=== PATIENT | female | born 1955 | race Caucasian/White ===

== ENCOUNTER → 2019-09-29 | Outpatient (CLI) | payer MEDICARE, OTHER | LOC: M.LAB 15:06 | PROVIDERS: ATTEND Internal Medicine Gastroenterology | DX: Z01.812 Encounter for preprocedural laboratory examination (principal); Z11.59 Encounter for screening for other viral diseases; Z86.010 Personal history of colon polyps ==

== ENCOUNTER 2020-03-22 15:08 | Emergency (ER) | payer OTHER ==
[~2020-03-22] VITALS: Ht 160 cm; Wt 81.7 kg
[2020-03-22 15:20] VITALS: BP 152/72
[2020-03-22] MEDS ORDERED: HYDROCODON-ACE1 EAC7 PO (16:38)
[2020-03-22] MEDS ORDERED: MEDROLDOSEPACK PO (16:43)
== END 2020-03-22 17:27 | disposition home or self-care (01) ==
LOC: M.ERS 15:08
DX: M70.62 Trochanteric bursitis, left hip (principal); Y93.89 Activity, other specified

== ENCOUNTER 2020-03-27 12:28 | Inpatient (IN) | payer OTHER ==
[~2020-03-27] VITALS: Ht 160 cm; Wt 87.5 kg
--- NOTE | ~2020-03-27 | IN ---
[address] [address] INTERIM NOTE Name: MONISHA LIRA Brian Room: [address] IN [facility]#: [id number] Admission: 03/27/20 Attend Phys: Wali Calderon MD Discharge: 04/02/20 Date of : 51 Report #: [id number] THIS REPORT FOR: cc: Leeann Long Christine L DO ~ Elia, Manana MD DATE OF SERVICE: 04/02/2020 SUBJECTIVE: The patient is doing better. She is being discharged to rehabilitation. She does not have fevers or chills. OBJECTIVE: VITAL SIGNS: Blood pressure 146/66, heart rate is 77, temperature 97.5. NECK: Supple. HEART: Normal S1, S2. LUNGS: Clear. ABDOMEN: Soft. MENTAL STATUS: Alert and oriented x 3. LABORATORY DATA: Pathology is still pending. ASSESSMENT AND PLAN: History of breast cancer with pathological hip fracture. Pathology is still pending. I advised to continue follow up with Dr. Gant. She states she has an appointment with Dr. Gant in 1 week. By: [id number] Bello MD /nt
--- NOTE | ~2020-03-27 | OP ---
[address] [address] OPERATIVE REPORT Name: PANKAJALYMONISHA A Room: [address] IN .R.#: [id number] Admission: 03/27/20 Attend Phys: Wali Calderon MD Discharge: Date of : 51 Report #: [id number] THIS REPORT FOR: cc: Leeann Long Christine L DO ~ Cornett, Alan D. DO DICTATED BY: Dontrell Olvera DO DATE OF SERVICE: 03/29/2020 PREOPERATIVE DIAGNOSIS: Pathologic left femoral neck fracture. POSTOPERATIVE DIAGNOSIS: Pathologic left femoral neck fracture. PROCEDURE PERFORMED: Left hip cemented hemiarthroplasty. SURGEON: Rene Hargrove DO ASSISTANTS: Dontrell Olvera DO ANESTHESIA: General. ANTIBIOTICS: 2 g Ancef IV preoperatively. ESTIMATED BLOOD LOSS: 200 mL. SPECIMENS: Femoral head for gross pathology. COMPLICATIONS: None. CONDITION: The patient is stable to PACU. INDICATIONS FOR PROCEDURE: The patient is a 64-year-old female who presented to the [facility] Emergency Department for evaluation of left hip pain. CT was obtained, which did demonstrate a minimally displaced femoral neck fracture. She did have a remote history of breast cancer and an MRI was obtained to further evaluate the fracture. MRI was noted to have a pathologic lesion in the left femoral neck at the fracture site consistent with pathologic fracture. Treatment options were discussed in detail with the patient. We did recommend cemented hemiarthroplasty as treatment. The risks, benefits, alternatives, complications were discussed. The patient wished to proceed. DESCRIPTION OF PROCEDURE: The patient was seen and examined in the preoperative holding area. The correct operative extremity was marked. Written consent was obtained. The patient was transferred to the operating [place] [address] OPERATIVE REPORT Name: MONISHA LIRA Room: [address] IN [facility]#: [id number] Admission: 03/27/20 Attend Phys: Wali Calderon MD Discharge: Date of : 51 Report #: [id number] on the operating table. She was given the benefit of general anesthesia. She was then placed in the right lateral decubitus position with the left side superiorly. Left lower extremity was then prepped and draped in usual sterile fashion. Timeout was performed to verify the correct patient, procedure and operative extremity and all were in agreement. Procedure then began with standard anterolateral incision over the left hip. Sharp dissection was carried down to the level of the IT band. This was incised longitudinally in line with the incision. Charnley retractor was placed. The gluteal tendons were then identified at their attachment on the greater trochanter and were tenotomized. This exposed the anterior joint capsule, which was incised utilizing H capsulotomy. There was noted to be a complete femoral neck fracture. The hip was dislocated. The femoral head was removed. There was noted to be softening and fibrous like tissue changes to the bone itself consistent with pathologic fracture. The femoral head was removed and sent for pathology. This was measured 46. The 46 trial head was inserted and was noted to have excellent suction and fit and fill of the acetabulum. Attention was then turned to the femur. The fracture line did extend just above the level of the lesser trochanter, so a femoral neck cut was not needed. The femur was then reamed and broached up to a size 9 broach. A final size 7 Echo stem was then cemented into position. The canal was prepped and a cement stopper was placed while cement was mixed on the back table. The canal was then pressurized with cement, the final stem was inserted and held into position allowing the cement to harden. Next, the various head and neck sizes were trialed. Ultimately, the +6 neck length with 46 mm bipolar head was then placed. This was reduced. Hip was noted to have excellent stability throughout range of motion. The incision was thoroughly irrigated with normal saline. TXA topical was placed into the incision. The hip was injected with 120 mL of orthopedic cocktail. The capsule was closed with #1 Vicryl in an interrupted epdjtu-yw-jdzyd fashion followed by a #5 FiberWire for repair of the gluteal tendons. A #1 Vicryl and #1 running Stratafix were used for the IT band, followed by 2-0 Vicryl subcutaneously, and 3-0 Stratafix and skin glue. Sterile dressing was applied. The patient was then awakened from anesthesia and transferred to the PACU in stable condition. The patient tolerated the procedure well and no complications. Dr. Hargrove was present and scrubbed into the procedure throughout the entirety of it. By: [id number] Hargrove DO /nt
[~2020-03-27 12:28] MED LIST: HYDROCODON-ACE1 EAC7 PO; MEDROLDOSEPACK PO
[2020-03-27 12:33] VITALS: BP 129/54
[2020-03-27 16:24] LABS: HEMATOCRIT 34.9 % (37.0-47.0); MCHC 34.4 g/dL (28.0-37.0); MCV 95.8 fL (80.0-100.0); RBC 3.64 mil/uL (4.20-5.00); RDW-CV 11.9 % (10.5-14.5); WBC 9.5 thou/uL (4.0-11.0)
[2020-03-27 16:39] LABS: CREATININE 0.8 mg/dL (0.6-1.3); POTASSIUM 3.4 mmol/L (3.5-5.1)
[2020-03-27 16:44] LABS: ALBUMIN 3.2 g/dL (3.4-5.0); TOTAL BILIRUBIN 0.5 mg/dL (<0.1-1.0); TOTAL PROTEIN 6.6 g/dL (6.4-8.2)
[2020-03-27 21:10] VITALS: BP 142/70
[2020-03-27 22:06] VITALS: BP 145/54
[2020-03-28] VITALS: BP 145/57
--- NOTE | 2020-03-28 07:01 | NUR ---
ASSUMED CARE OF PT AT APPROX 2119. PT A&OX4, VSS ON ROOM AIR, IV SALINE LOCKED, IV PAIN MEDS REQUESTED Q2H AND GIVEN ORDERED, PT REPOSITIONED Q2H, URINARY CATHETER IN PLACE, WILL CONTINUE TO MONITOR.
--- NOTE | 2020-03-28 10:00 | NUR ---
CM SPOKE TO THE PT TO DISCUSS CM ASSESSMENT. PT A&O, NORMALLY INDEPENDENT WITH ADL'S, ACTIVE AND DRIVES. PT RESIDES AT HOME ALONE, BUT INFORMS THAT IF SHE NEED ASSISTANCE AT D/C SHE HAS 'FRIENDS THAT COULD HELP'. PT OWNS 0 DME. PT HAS 0 HX OF HH OR SNF. PT'S HOME HAS 3 STEPS FROM THE MAIN ENTRY (BATHROOM, BEDROOM AND KITCHEN ARE ON THAT LEVEL. PT HAS 10 STEPS FROM THE GARAGE TO THE BASEMENT LEVEL OF HER HOME. CM WILL REMAIN AVAILABLE TO ASSIST AND FOLLOW NEEDED.
[2020-03-28 11:31] VITALS: BP 142/58
[2020-03-28 20:00] VITALS: BP 134/53
[2020-03-29] VITALS: BP 115/58
[2020-03-29 02:06] LABS: GLYCOHEMOGLOBIN (HGB A1C) 5.5 % (4.8-5.6)
[2020-03-29 04:52] LABS: HEMATOCRIT 34.1 % (37.0-47.0); MCH 33.3 pg (26.0-34.0); MCHC 35.2 g/dL (28.0-37.0); MCV 94.7 fL (80.0-100.0); MPV 7.2 fl. (7.2-11.1); RBC 3.6 mil/uL (4.20-5.00); WBC 7.6 thou/uL (4.0-11.0)
[2020-03-29 05:13] LABS: ALBUMIN 2.6 g/dL (3.4-5.0); CALCIUM 9.7 mg/dL (8.5-10.1); CREATININE 0.7 mg/dL (0.6-1.3); MAGNESIUM 2.3 mg/dL (1.8-2.4); POTASSIUM 3.8 mmol/L (3.5-5.1); TOTAL BILIRUBIN 0.7 mg/dL (<0.1-1.0); TOTAL PROTEIN 6.3 g/dL (6.4-8.2)
--- NOTE | 2020-03-29 06:43 | NUR ---
Alert and oriented x 4. Vitals are stable. L leg is shortened and slight rotated inward. We have positioned her from L side to her back. She has a cheng to DD. She did have to start O2 at 2L n/c, roomair sat decreased to 80's. She has been recieving fentanyl 100 mcg approximately every 2 hours. She has slept well.
[2020-03-29 07:45] VITALS: BP 156/60
--- NOTE | 2020-03-29 15:41 | NUR ---
PT ROUNDING POC UPDATE: PT SCHEDULED FOR SURGERY TODAY.
[2020-03-29 16:45] VITALS: BP 132/58
--- NOTE | 2020-03-29 19:55 | NUR ---
A&OX 4, PWD. LUNGS CLEAR, HEART TONES REGULAR, + BS X 4 QUADS. PEDAL PULSES PRESENT. THIGH HIGH TEDS ON PRISCILLA LEGS. FOOT PUMPS ON PRISCILLA FEET. ABDUCTOR WEDGE INPLACE BETWEEN LEGS. BOWENS CATH INTACT AND PATENT OF CLEAR CONSTANTIN URINE. ON 2L PER NC. 02 SAT KEPT DROPPING TO HIGH 80'S WHEN PT DOZED OFF. ON PULSE OX MACHINE. SL LEFT AC INTACT AND PATENT. IV PUT IN VIA SURGERY LEFT WRIST WITH 1/2 NS AT 75MLS/HR. CURRENTLY STATED PAIN WAS 8/10 AND GAVE 0XY 5MG. PT CURRENTLY RESTING IN BED WATCHING T.V. AND LOOKING AT HER I-PAD. CALL LIGHT WITHIN REACH. PT TURNED Q 2 HOURS. WILL CONTINUE TO MONITOR. EATING AND DRINKING WELL WITHOUT N,V.
[2020-03-29 20:00] VITALS: BP 138/64
[2020-03-30] VITALS: BP 123/51
[2020-03-30 04:00] VITALS: BP 122/51
[2020-03-30 04:11] LABS: HEMATOCRIT 28.9 % (37.0-47.0); HEMOGLOBIN 10.4 gm/dL (12.0-15.0); MCH 33.5 pg (26.0-34.0); MPV 7.1 fl. (7.2-11.1); RBC 3.11 mil/uL (4.20-5.00); RDW-CV 11.9 % (10.5-14.5); WBC 10.3 thou/uL (4.0-11.0)
[2020-03-30 04:20] LABS: CALCIUM 8.9 mg/dL (8.5-10.1); CREATININE 0.7 mg/dL (0.6-1.3); MAGNESIUM 2.1 mg/dL (1.8-2.4); POTASSIUM 3.7 mmol/L (3.5-5.1)
--- NOTE | 2020-03-30 05:49 | NUR ---
PATIENT HAS REMAINED ALERT AND ORIENTED X 4 THROUGHOUT THE SHIFT AND RESTING QUIETLY ON HOURLY ROUNDS. TURNED Q2H MAINTAINING HIP PRECAUTIONS. DRESSING LEFT HIP CLEAN AND DRY WITH ICE PACK UTILIZED. O2 2L/MIN WITH CONTINUES OXIMITRY. MEDS, IVF'S AND ANTIBIOTICS PER ORDER. ALTHOUGH PATIENT RESTING QUIETLY, RATES LEFT HIP PAIN 8-9/10. PATIENT HAS RECEIVED BOTH SCHEDULED ORAL MEDS AND PRN ORAL AND IV PAIN MEDS. FALL PRECAUTIONS IN PLACE. CONTINUE TO MONITOR.
[2020-03-30 08:14] VITALS: BP 97/50
[2020-03-30 16:03] VITALS: BP 107/45
--- NOTE | 2020-03-30 18:37 | NUR ---
PATIENT HAS REMAINED A&OX4, PLEASANT AND COOPERATIVE WITH CARES THIS SHIFT. PATIENT WORKED WITH PT/OT THIS SHIFT, CLEANED UP AND SAT UP IN CHAIR FOR APPROX. 2HRS. THIS AFTERNOON. PATIENT CONTINUES TO C/O PAIN IN LEFT HIP WITH PARTIAL RESULTS WITH PAIN MEDICATION ADMINISTRATION. NEW IV PLACED IN LEFT FOREARM, FLUIDS INFUSING ORDERED. CALL LIGHT AND FREQUENTLY USED ITEMS WITHIN REACH.
[2020-03-30 23:43] VITALS: BP 119/56
[2020-03-31 04:17] LABS: HEMOGLOBIN 9.9 gm/dL (12.0-15.0)
--- NOTE | 2020-03-31 05:00 | NUR ---
PATIENT SLEPT WELL DURING THIS SHIFT. PT WITH BOWENS TO DEPENDENT DRAIN WITH YELLOW URINE. PT WEARING THIGH HIGH KELLY HOSE AND FOOT PUMPS. PT WITH ABDUCTOR PILLOW BETWEEN LEGS. FLUIDS INFUSING PER DR ORDER. PT IS ON ROOM AIR. PT REQUESTED PAIN X3 DURING THIS SHIFT. DSG ON LT HIP C/D/I. FREQUENTLY USED ITEMS AND CALL LIGHT WITHIN REACH. SIDERAILS UPX2 AND BED ALARM ON. WILL CONTINUE TO MONITOR.
[2020-03-31 08:05] VITALS: BP 119/55
[2020-03-31 16:32] VITALS: BP 111/50
--- NOTE | 2020-03-31 18:48 | NUR ---
PATIENT HAS REMAINED A&OX4 THIS SHIFT, PLEASANT AND COOPERATIVE WITH CARES. ALL OF PATIENT'S IV MEDICATIONS WERE DISCONTINUED BY DR. DUFFY THIS SHIFT. PATIENT'S IV WOULD NOT FLUSH THIS EVENING, CONTACTED DR. SORIANO AND GOT THE "OK" TO LEAVE IV OUT PER PATIENT REQUEST. URINARY CATHETER REMAINS IN PLACE, DRAINING YELLOW URINE. CALL LIGHT AND FREQUENTLY USED ITEMS WITHIN REACH.
[2020-04-01 04:00] VITALS: BP 101/71
--- NOTE | 2020-04-01 05:36 | NUR ---
PATIENT SLEPT WELL DURING THIS SHIFT. PT REFUSING SOME TURNS BUT IS ABLE TO REPOSITION HERSELF AT TIMES IN BED. PT WITH NO IV ACCESS. DSG ON HIP C/D/I. PT WITH BOWENS CATHETER WITH YELLOW URINE. PT ON SCHEDULED IBUPROFEN AND TRAMADOL. DENIES NEEDS AT THIS TIME. WILL CONTINUE TO MONITOR.
[2020-04-01 08:10] VITALS: BP 142/59
[2020-04-01] MEDS ORDERED: ELIQUIS5 MG PO (09:49)
[2020-04-01] MEDS ORDERED: OXYCODONE HCL 55 MG PO (09:49)
[2020-04-01 14:00] VITALS: BP 119/51
--- NOTE | 2020-04-01 15:30 | NUR ---
CM INFORMED DURING PRIME ROUNDING OF THE PLAN OF CARE FOR THE PT. PLAN TO CONSULT INPT ARU FOR PT. PT/OT/ST EVALS PENDING. PT NO MEDICALLY STABLE FOR ARU AND AWAITING ARU DECISION TO ACCEPT PT. CM WILL REMAIN AVAILABLE TO ASSIST AND FOLLOW NEEDED.
--- NOTE | 2020-04-01 16:17 | NUR ---
PATIENT UP WITH THERAPY THIS SHIFT. SCHED PAIN MEDS GIVEN WELL PRN OXY IR. ICE TO LEFT HIP. DRESSING D/I. UP WITH SBA, GAIT BELT AND WALKER. REHAB CONSULT PLACED. NO IV. GOOD APPETITE.
[2020-04-01 20:00] VITALS: BP 120/51
--- NOTE | 2020-04-02 05:45 | NUR ---
ASSUMED PT CARE AT APPROX 1930. PT IS AWAKE AND ORIENTED X4. PT IS NOT IN DISTRESS, NO DESATURATIONS NOTED ON ROOM AIR. PT COMPLAINS OF LEFT LEG PAIN/INCISION SITE PAIN PARTIALLY RELIEVED BY PAIN MEDS GIVEN PER MAR. NO ACUTE CHANGES THIS SHIFT. CALL LIGHT WITHIN REACH. HOURLY ROUNDING DONE FOR PT SAFETY.
[2020-04-02 07:30] VITALS: BP 148/66
[2020-04-02 13:35] VITALS: BP 148/66
--- NOTE | 2020-04-02 13:59 | NUR ---
cm faxed provider plus script for [facility]ww. [phone]. pt will have walker delivered to her room.
== END 2020-04-02 16:44 | disposition home or self-care (01) | DRG 522 ==
LOC: M.ERS 12:28 → M.TBA-ER 16:33 → M.2W 16:33
PROVIDERS: Emergency Medicine Emergency Medical Services; Internal Medicine; Orthopaedic Surgery; ADMIT Internal Medicine; ATTEND Internal Medicine
PROC: 0SRS019 Replacement of Left Hip Joint, Femoral Surface with Metal Synthetic Substitute, Cemented, Open Approach (ICD-10-PCS; principal; 2020-03-29)
PROC: 3E0T3BZ Introduction of Anesthetic Agent into Peripheral Nerves and Plexi, Percutaneous Approach (ICD-10-PCS; principal; 2020-03-29)
DX: M80.052A Age-related osteoporosis with current pathological fracture, left femur, initial encounter for fracture (principal); E44.1 Mild protein-calorie malnutrition; R73.9 Hyperglycemia, unspecified; M85.80 Other specified disorders of bone density and structure, unspecified site; E87.6 Hypokalemia; E66.9 Obesity, unspecified; Z20.822 Contact with and (suspected) exposure to COVID-19; Z68.34 Body mass index [BMI] 34.0-34.9, adult; Z92.21 Personal history of antineoplastic chemotherapy; Z79.899 Other long term (current) drug therapy; Z85.3 Personal history of malignant neoplasm of breast; Z92.3 Personal history of irradiation